=== PATIENT | male | born 1950 | race Caucasian/White ===

== ENCOUNTER 2017-06-04 09:15 | Inpatient (IN) | payer MEDICARE ==
[2017-06-04 12:49] VITALS: BMI 35.9
[2017-06-04] MEDS ORDERED: HumaLOG 300 UNITS/3 ML VIAL SC PRN (14:21)
[2017-06-04] MEDS ORDERED: Dextrose 50% Abboject 50 ML SYRINGE SLOW IVP PRN (14:21)
[2017-06-04] MEDS ORDERED: Dextrose 5% in Water 1,000 ML IV PRN (14:21)
[2017-06-04] MEDS ORDERED: cefTRIAXone\\ROCEPHIN 1 GM in Sodium Chloride 0.9% 100 ML IVPB SCH (15:00)
[2017-06-04] MEDS: Sodium Chloride 0.9% 1,000 ML IV SCH ×2 (15:10→18:01)
[2017-06-04 15:18] LABS: Anion Gap 14 mmol/L (10-20); BUN (Urea Nitrogen) 19 mg/dL (8.4-25.7); Calc. Creatinine Clearance 146 mL/min (70-130); Calcium 8.3 mg/dL (7.8-10.44); Carbon Dioxide 23 mmol/L (23-31); Chloride 108 mmol/L (98-107); Estimated GFR-MDRD Greater than 90
[2017-06-04] MEDS ORDERED: Morphine 10 MG/ML VIAL SLOW IVP PRN (16:08)
[2017-06-04] MEDS: metroNIDAZOLE 500 MG in Premix Bag 1 BAG IVPB SCH (16:12)
[2017-06-04] MEDS ORDERED: ISOVUE-370 76%-LOCM 1 ML ONE (16:18)
[2017-06-04] MEDS: Cefepime 2 GM, Syringe 2.5 ML in Sterile Water 10 ML SLOW IVP SCH (17:34)
--- NOTE | 2017-06-04 17:54 | CT ---
CT ABDOMEN AND PELVIS WITH CONTRAST 06/04/17 HISTORY: Left lower quadrant abdominal pain and back pain. COMPARISON: None. FINDINGS: Moderate bilateral layering pleural effusions. No pericardial effusion. Small layering free fluid in the pelvis. Prostate is markedly enlarged. Moderate diverticular diseas e of the sigmoid colon without active inflammation. There is moderate stranding around the pancreatic tail. No areas of nonenhancement. No hydronephrosis. 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 No acute osseous abnormality. IMPRESSION: 1. Acute edematous pancreatitis in the pancreatic tail. No drainable fluid collection. 2. Moderate sized bilateral layering pleural effusions. 3. Small volume free fluid in the pelvis. 4. Mild diverticular disease sigmoid colon without active inflammation. POS: [facility]
[2017-06-04] MEDS ORDERED: Ondansetron HCl/PF 4 MG/2 ML Vial IVP PRN (18:52)
[2017-06-04] MEDS ORDERED: Cefepime 2 GM in Sodium Chloride 0.9% 100 ML IVPB SCH (21:00)
--- NOTE | 2017-06-04 22:40 | ULT ---
RIGHT UPPER QUADRANT ULTRASOUND 06/04/17 INDICATION: Generalized abdominal pain with history of pancreatitis. FINDINGS: The left hepatic lobe is obscured by overlying bowel gas. The visualized aspect of the liver is othe rwise unremarkable appearing. No gallstones are present. No sonographic Cohen's sign is reported. The common bile duct measures 3 .9 mm. The pancreas is obscured by overlying bowel gas. Right kidney measures 11.9 cm. No hydronephrosis is evident. Incidental note is made of right sided pleural effusion. IMPRESSION: 1. No cholelithiasis. 2. Right sided pleural effusion. POS: [facility]
--- NOTE | 2017-06-04 23:13 | HP-2 ---
CODE STATUS: FULL. ATTENDING: Italo Dietz MD RESIDENT: Victoria Gutierrez MD HISTORIAN: Self. CHIEF COMPLAINT: Pancreatitis, transferred from outside hospital. HISTORY OF PRESENT ILLNESS: This is a 67-year-old male with past medical history of hypertension, p rediabetes and hyperlipidemia who presents as a transfer from [facility] for acute pancreati tis. He was admitted there on 06/02/2017 after 2 days of abdominal pain, nausea, fevers. He also h as not had a bowel movement since Thursday. His pain has improved since hospitalization, but his le ukocytosis has continued to worsen. His nausea has improved with NG tube, but his abdominal pain is still really bad in the left lower quadrant. PAST MEDICAL HISTORY: 1. Hypertension. 2. Prediabetes. 3. Benign bladder tumor. 4. Hyperlipidemia. Used to be on lovastatin, but stopped due to leg cramps. PAST SURGICAL HISTORY: Tonsillectomy. ALLERGIES: No known drug allergies. MEDICATIONS: 1. Metformin 500 mg at bedtime. 2. Lisinopril/hydrochlorothiazide 20 mg/12.5 mg. FAMILY HISTORY: Dad had a CVA at 56 years old. Two sisters had breast cancer. SOCIAL HISTORY: Denies tobacco or drug use. Drinks alcohol occasionally. REVIEW OF SYSTEMS: Twelve point review of systems was conducted was negative, unless otherwise ment ioned in the HPI. PHYSICAL EXAMINATION: VITAL SIGNS: Blood pressure 153/86, pulse 103, respiratory rate 16, temperature 98.2, pulse ox 95% on room air. Current weight 110 kilograms. GENERAL: Alert, oriented x3, no acute distress, obese, appropriately interactive. EYES: Pupils equal, round, reactive to light. Extraocular muscles intact. Conjunctivae within nor mal limits. ENT: Nasal mucosa and oropharynx within normal limits. NECK: Supple, no lymphadenopathy. CARDIOVASCULAR: Regular rate and rhythm. No murmurs, gallops, 2+ radial and pedal pulses. RESPIRATORY: Normal effort, no retractions, clear to auscultation bilaterally. SKIN: Warm, dry. No cyanosis or lesions. ABDOMEN: Soft, mildly tender to palpation, worse on the left lower quadrant. No bowel sounds heard , some mild distention. EXTREMITIES: Trace pitting edema, no cyanosis. MUSCULOSKELETAL: Structure and tone within normal limits, 5/5 muscle strength. Full range of motio n. NEUROLOGIC: No focal deficits. Sensation within normal limits. PSYCHIATRIC: Appropriate. LABORATORY DATA: WBC 35, hemoglobin 13, hematocrit 39.8, platelets 222. Sodium 140, potassium 3.6, chloride 106, CO2 of 24, BUN 16, creatinine 0.8, glucose 153, calcium 8.5, total protein 6, albumin 3, T-bilirubin 0.7, AST 13, ALT 12, alkaline phosphatase 68. Amylase was 277 on admission and is n ow 38. Lipase was 430 on admission and is now 28. IMAGING: CT abdomen on 06/02/2017 showed mild peripancreatic inflammatory change compatible with pa ncreatitis. ASSESSMENT AND PLAN: A 67-year-old male presents with: 1. Acute pancreatitis. Lipase and amylase have improved. There is a concern for complication with increased white blood cell counts. We will get a CT abdomen and pelvis with and without contrast. We will continue IV fluids at 150 mL per hour. We will treat with Flagyl and cefepime. We will pu t the NG tube to suction and keep the patient n.p.o. We will recheck in a.m. CBC and will give morph ine p.r.n. for pain. We will consider surgery consult if needed. 2. Ileus. Concern for bowel ischemia. The patient has not had a bowel movement since Thursday. W e will get a CT scan and an NG tube to suction and n.p.o., normal saline at 150 mL per hour. 3. Leukocytosis with trending white blood cell count. We will treat with cefepime and Flagyl, NS a t [address] abdomen. 4. Hypertension. We will hold home meds. We will give hydralazine p.r.n. for systolic blood pressu re greater than 180. 5. Hyperlipidemia, not on any medication. We will check a fasting lipid panel for potential causes of pancreatitis. 6. Prediabetes. We will give mild sliding scale insulin. Accu-Cheks q.6 hours. 7. Venous thromboembolism prophylaxis. Lovenox. DISPOSITION: Admit to medical. Symptomatic medication will be provided. History and physical exam as well as management discussed with Dr. Dietz.
[2017-06-05] MEDS: metroNIDAZOLE 500 MG in Premix Bag 1 BAG IVPB SCH ×2 (00:13→09:18)
[2017-06-05] MEDS: Sodium Chloride 0.9% 1,000 ML IV SCH (00:19)
--- NOTE | 2017-06-05 01:54 | CON ---
DATE OF SERVICE: 06/04/2017 HISTORY OF PRESENT ILLNESS: Willis Aguirre is a 67-year-old male transferred from [place]. The pat ient has been having abdominal pain, left mid upper abdomen, nausea and vomiting since Thursday. He was hospitalized in [place] noted to have a minimal elevation of his lipase. CAT scan of abdomen and pelvis on 06/02/2017, revealed pancreatitis changes to the tail of the pancreas. The patient re mained tender. His white count continued to elevate to 35,000. He was transferred to our emergency room and admitted to [facility] for abdominal pain. I have been asked to see him regarding skinner rgical input. The patient has never had a colonoscopy. 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 He reports drinking an occasional beer but did not have alcohol within 48-72 hours at the onset of his pain. He has not had a bowel movement for several days. He report s an NG tube placed in [place] filled 4-5 canisters. He had a CAT scan in [place] on 06/02/2017 as described above and repeat CAT scan today at this facility revealed changes consistent with infl ammatory changes at the tail of the pancreas, otherwise no other findings. He does have a mildly di stended gallbladder. There is significant stool in his right colon, but he does not appear to be co nstipated. The patient reports pain in his left mid abdomen to lower abdomen radiating to his back. CAT scan did demonstrate diverticulosis but no changes of diverticulitis. In this facility, tempe rature is 98.2 degrees, heart rate 103, respiratory rate 15, 153/86. Sodium 141, potassium 3.6, chl oride 108, creatinine 0.78. Lactic acid is 1.8. He reports passing some flatus today but has not h ad a bowel movement since Thursday. He had normal bowel function prior without a prior history of b iliary colic or abdominal pain. ALLERGIES: None. TOBACCO: None. ALCOHOL: Infrequently, none recently. MEDICATIONS: Metformin 500 p.m., lisinopril/hydrochlorothiazide 20/12.5 daily. PAST MEDICAL HISTORY: Hypertension. He reports that he is not diabetic, but he takes metformin, so he will not be diabetic. REVIEW OF SYSTEMS: Noncontributory. 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 He has amarisanam r had a colonoscopy. PHYSICAL EXAMINATION: VITAL SIGNS: Five foot 9 inches, 243 pounds, 36 BMI. 98.2 degrees, 103, 15 respiratory rate, 153/8 6. LUNGS: Clear to auscultation. CARDIAC: Regular rate and rhythm without murmur or gallop. ABDOMEN: Soft, protuberant, tenderness in right upper quadrant with guarding, tenderness in his lef t knt-pu-fjcre abdomen with mild guarding, no peritoneal signs. Bowel sounds absent. EXTREMITIES: Unremarkable. ASSESSMENT AND PLAN: 1. Abdominal pain of uncertain etiology. His lipase and amylase were not significantly elevated, a [facility] CAT scan revealed changes of distal pancreatitis tail. This was done on 06/02/2017 in [facility] and repeat CAT scan today revealed the same. There are no obvious other changes to account for his leukocytosis and continued pain. I would recommend an ultrasound of his gallbladder to escape etiology of his pancreatitis. I would ask Gastroenterology to see him for their input. He may need a colonoscopy to evaluate things. The patient will repeat his abdominal x-rays in the morning and make further recommendations based on a review of his CAT scan with the radiologist, review of his u ltrasound, abdominal films, and await Gastroenterology input. Continue cefepime. Check laboratorie s tomorrow. 2. Diabetes mellitus. 3. Hypertension. 4. Obesity, morbid. 5. Metabolic syndrome.
[2017-06-05 04:54] LABS: Anion Gap 16 mmol/L (10-20); BUN (Urea Nitrogen) 20 mg/dL (8.4-25.7); Calc. Creatinine Clearance 146 mL/min (70-130); Calcium 8.3 mg/dL (7.8-10.44); Carbon Dioxide 22 mmol/L (23-31); Chloride 108 mmol/L (98-107); Cholesterol 122 mg/dl (< 200 Desired); Estimated GFR-MDRD Greater than 90; LDL Cholesterol, Calculated 82 mg/dL
[2017-06-05 05:13] LABS: Band 7 % (5-11); Hematocrit 37.5 % (42.0-52.0); Mean Platelet Volume 8.2 fL (7.4-10.4); Neutrophil 78 % (42-75); Red Blood Cell (RBC) Count 4.27 mill/uL (4.70-6.10); White Blood Cell (WBC) Count 26.4 thou/uL (4.8-10.8)
[2017-06-05] MEDS: Cefepime 2 GM, Syringe 2.5 ML in Sterile Water 10 ML SLOW IVP SCH (05:17)
[2017-06-05] MEDS ORDERED: Potassium Chloride 40 MEQ in Sodium Chloride 0.9% 500 ML IVPB SCH (06:30)
--- NOTE | 2017-06-05 08:59 | PDOC.FM ---
- Subjective Subjective: Patient reports some chills overnight and around 6am he started having bright red blood out of his NG tube. He denies any dizziness, lightheadedness. He also reports that last night he started having some SOB. He denies any chest pain. He is passing gas since last night, but is still not having any bowel movements. He is still having abdominal pain that is worse in the left lower quadrant. - Objective MAR Reviewed: Yes Vital Signs & Weight: Vital Signs (12 hours) Temp Pulse Resp BP Pulse Ox 06/05/17 08:18 97.5 F L 97 20 163/88 H 96 06/05/17 04:00 98.7 F 91 16 150/86 H 94 L 06/05/17 00:00 97.9 F 99 16 143/90 H 92 L Weight Weight 110.54 kg I&O: 06/04/17 06/05/17 06/06/17 06:59 06:59 06:59 Intake Total 1000 1800 Output Total 300 1000 Balance 700 800 Result Diagrams: 06/05/17 03:14 06/05/17 03:14 Phys Exam - Physical Examination Constitutional: NAD HEENT: moist MMs Respiratory: no wheezing, no rales, no rhonchi, clear to auscultation bilateral Cardiovascular: no significant murmur, no rub tachycardic Gastrointestinal: soft, positive bowel sounds mildly distended, tender to palpation in left lower quadrant and SUSAN Musculoskeletal: edema present (trace edema in ankles) Neurological: non-focal, moves all 4 limbs Psychiatric: normal affect, A&O x 3 Dx/Plan (1) Acute pancreatitis Code(s): K85.90 - ACUTE PANCREATITIS WITHOUT NECROSIS OR INFECTION, UNSP Status: Acute Qualifiers: Pancreatitis type: unspecified pancreatitis type Acute pancreatitis complication: no infection or necrosis Qualified Code(s): K85.90 - Acute pancreatitis without necrosis or infection, unspecified Plan: Acute pancreatitis admitted at [facility] on 06/02, transferred here for concern for complication with persistently increasing white count. CT scan showed inflammation in tail of pancreas, but no abscess or necrosis. -NG tube to suction -NPO -NS @ 150 -Cefepime day 2 (s/p 2 days of rocephin), Flagyl day 4 -General Surgery consulted, appreciate recs -GI consulted, appreciate recs -Acute abdomen series (2) Upper GI bleed Code(s): K92.2 - GASTROINTESTINAL HEMORRHAGE, UNSPECIFIED Status: Acute Plan: Patient put out about 100mL of bright red blood from the NG tube since 6am. No increase in abdominal pain, no change in vital signs. Patient is stable. AM Hb was 12.4 -GI has been consulted, appreciate recs -Acute abdomen series (3) Leukocytosis Code(s): D72.829 - ELEVATED WHITE BLOOD CELL COUNT, UNSPECIFIED Status: Acute Qualifiers: Leukocytosis type: unspecified Qualified Code(s): D72.829 - Elevated white blood cell count, unspecified Plan: Elevated WBC count, now downtrending since transfer here -Continue NS @ 150 -Continue Cefepime and Flagyl -Trend CBC (4) Hypokalemia Code(s): E87.6 - HYPOKALEMIA Status: Acute Plan: K 3.2 -Will replete (5) Ileus Code(s): K56.7 - ILEUS, UNSPECIFIED Status: Acute Plan: Pt had an ileus, but is now passing gas and has bowel sounds Has not had a BM since Thursday -Will continue to monitor (6) Prediabetes Code(s): R73.03 - PREDIABETES Status: Acute Plan: -Accuchecks q6h -Mild SSI (7) Hypertension Code(s): I10 - ESSENTIAL (PRIMARY) HYPERTENSION Status: Acute Qualifiers: Hypertension type: essential hypertension Qualified Code(s): I10 - Essential (primary) hypertension Plan: Hold home medicine while pt is NPO Hydralazine prn
[2017-06-05] MEDS: Enoxaparin Sodium 40 MG/0.4 ML SYRINGE SC SCH (09:21)
[2017-06-05] MEDS ORDERED: hydrALAZINE 20 MG/ML VIAL SLOW IVP PRN (09:32)
[2017-06-05] MEDS: Potassium Chloride 20 MEQ in Lactated Ringer's 1,000 ML IV SCH ×3 (10:27→18:01)
--- NOTE | 2017-06-05 10:38 | RAD ---
ABDOMEN TWO VIEWS: CHEST ONE VIEW: HISTORY: A 67-year-old male with abdominal pain. COMPARISON: Abdomen and pelvis CT scan from 06/04/2017. FINDINGS: Small bilateral pleural effusions, larger on the left side, with some associated left lower lobe pul monary parenchymal change, evidence for some subsegmental atelectasis, probably stable from 06/04/20 17. NG tube is in place, with the tip in the stomach. There is gas and fecal material in the colon . No evidence of large or small bowel obstruction or free air or overt calculus. IMPRESSION: 1. Nasogastric tube in place. 2. Left pleural effusion and pulmonary parenchymal changes, stable from prior CT. 3. No overt calculus or bowel obstruction or free air. POS: [facility]
[2017-06-05] MEDS ORDERED: Pantoprazole 40 MG VIAL IVP SCH (11:00)
--- NOTE | 2017-06-05 11:35 | CON ---
DATE OF CONSULTATION: 06/05/2017 GI INPATIENT CONSULTATION NOTE REASON FOR CONSULTATION: Hematemesis. HISTORY OF PRESENT ILLNESS: Willis Aguirre is a 67-year-old man with a history of hypertension who wa s transferred here from [place] yesterday with worsening leukocytosis in the context of what appea rs to be distal pancreatitis. The patient reports no prior history of any pancreatic or liver disea se or illness or any gastrointestinal illness. He has never undergone EGD or colonoscopy. He will have occasional alcohol, but none recently. Essentially several days ago, he had fairly acute onset of abdominal pain on the left side. This is in the left upper quadrant radiating down to the left lower quadrant and also to the low back. It is associated with nausea and several episodes of dry h eaves. He was hospitalized in [place] with a minimal elevation of his lipase and a CT scan there on 06/02/2017 showing pancreatitis changes to the tail of the pancreas. He had a worsening leukocyt osis to 35,000 and that prompted his transfer here yesterday. Repeat CT yesterday again demonstrate d changes consistent with inflammation in the tail of the pancreas, but otherwise no acute findings. He had a nasogastric tube in place which initially put out over 4 mL of clear fluid. The nasogast jannette tube remained in place, then this morning acutely the patient had bright red blood coming out of the nasogastric tube. Nursing reports he had 300-400 mL of bright red blood and now this has turne d into coffeeground type material. The patient did not have any particular worsening of his abdomin al pain, no fever spike. He has remained hemodynamically stable. Labs this morning prior to the bl ood from the nasogastric tube showed normal hemoglobin of 12.6. I am starting him on IV PPI at this time. The patient does relate that he takes several Advil most days including some 800 mg Advil recently f or his aches and pains and then worsening abdominal pain. He does not take any acid suppression. REVIEW OF SYSTEMS: Full review of systems including constitutional, head, eyes, ears, nose, throat, GI, , cardiovascular, respiratory, musculoskeletal, and neurologic systems is negative except as noted in the HPI. PAST MEDICAL HISTORY: 1. Hypertension. 2. Borderline hyperglycemia. 3. Obesity. OUTPATIENT MEDICATIONS: Metformin 500 mg q.p.m., lisinopril/hydrochlorothiazide 20/12.5 mg daily. INPATIENT MEDICATIONS: Cefepime 2 g IV q.12 hours, Lovenox, metronidazole 500 mg q.8 hours IV, morp maritza p.r.n., Zosyn IV, Protonix 40 mg IV q.12 hours started this morning. SOCIAL HISTORY: No tobacco abuse, alcohol use is infrequent, none recently. FAMILY HISTORY: Negative for GI malignancy. PHYSICAL EXAMINATION: VITAL SIGNS: Temperature 97.5, pulse 97, blood pressure 163/88, and 96% oxygen saturation on room a ir. GENERAL: A 67-year-old man lying in bed comfortably in no acute distress. SKIN: No jaundice, no rashes were palpable. EYES: No scleral icterus. Extraocular movements intact. ENT: Mucous membranes moist. He has a nasogastric tube in place and this is suctioning out some co ffee grounds emesis material. LYMPH: No submandibular or supraclavicular lymphadenopathy. THYROID: Nontender to palpation. HEART: Regular rate and rhythm. LUNGS: Clear to auscultation bilaterally. ABDOMEN: Bowel sounds present, but hypoactive. The abdomen is soft and tender to palpation only on the left side of the abdomen. No guarding or rebound tenderness. EXTREMITIES: No peripheral edema. VESSELS: Radial pulses 2+ bilaterally. NEUROLOGICAL: Cranial nerves II-XII intact bilaterally. No focal deficits. LABORATORY STUDIES: WBC 26.4, hemoglobin 12.4, and platelets 244. Sodium 143, potassium 3.2, BUN 2 0, creatinine 0.78, and lactic acid 1.8. Labs from [place] prior to transfer here showed normal L FTs with total bilirubin 0.7, alkaline phosphatase 68, AST 13, ALT 12, amylase was 277 on admission and had declined to 38, lipase is 430 on admission, but had declined to 28. IMAGING STUDIES: CT of the abdomen and pelvis performed yesterday demonstrated acute edematous panc reatitis in the pancreatic tail with no drainable fluid collection. There is moderate bilateral ple ural effusion, mild diverticular disease in the sigmoid colon, but without any evidence of active di verticulitis. Abdominal ultrasound performed last night showed no evidence of cholelithiasis, malik l common bile duct measuring 3.9 mm. ASSESSMENT AND PLAN: 1. Acute hematemesis. I have started the patient on Protonix 40 mg IV twice daily. We will plan f or diagnostic esophagogastroduodenoscopy later today. Note, the patient is hemodynamically stable a nd this is all acute this morning. It is possible this is related to his presenting pain, need to r ule out peptic ulcer disease, etc. Further recommendations following endoscopy in this regard. Ple ase recheck hemoglobin and hematocrit later today. 2. Pancreatitis, involving the pancreatic tail. I see pancreatic enzymes declined while he was at [place], but CT findings of pancreatic tail inflammation persists. Etiology of this is unclear. Note the normal LFTs, as well as essentially normal appearing gallbladder on ultrasound. Consider p ossibility that he might be reacting to his thiazide diuretic. Would recommend thiazide be disconti nued. Continue supportive care, n.p.o., IV fluids and pain control. 3. Left-sided abdominal pain, unclear whether related to upper gastrointestinal mucosal pathology o r his pancreatitis. Thank you for the consultation. Please call back with questions or concerns.
[2017-06-05] MEDS ORDERED: Succinylcholine Chloride 20 MG/ML 10 ml SYRINGE FS ONE (13:05)
[2017-06-05] MEDS ORDERED: Lidocaine 1% PF 5 ML VIAL ONE (13:05)
[2017-06-05] MEDS ORDERED: Propofol 200 MG/20 ML VIAL ONE (13:05)
[2017-06-05] MEDS ORDERED: Promethazine HCl 25 MG/ML VIAL IM PRN (13:33)
[2017-06-05] MEDS ORDERED: Ondansetron HCl/PF 4 MG/2 ML Vial IVP PRN (13:33)
[2017-06-05] MEDS ORDERED: Promethazine HCl 25 MG/ML VIAL SLOW IVP PRN (13:33)
--- NOTE | 2017-06-05 14:38 | HP ---
CHIEF COMPLAINT: Pancreatitis, transfer from outside hospital. I have also reviewed the history an d physical of Dr. Victoria Gutierrez and agree with her assessment and plan. HISTORY OF PRESENT ILLNESS: Mr. Aguirre is a pleasant 67-year-old white male patient who was transferr ed from [facility]. He had been admitted there on 06/02 with acute pancreatitis. Clinicall y, he had been improving, but his white count devon from 31,000 to 35,000 in [place], we will ask f or transfer here for higher level of care. I admitted him after the transfer and he is being worked up. PHYSICAL EXAMINATION: GENERAL: Mr. Aguirre is quite pleasant. He is awake and alert. He is in no distress. He states real ly he feels better than from his admission 3 days ago and had this pain is substantially diminished. VITAL SIGNS: Stable with a blood pressure 150/80, his pulse rate is 100, respiratory rate is 16, an d he is afebrile and his room air pulse oximetry is 95%. HEENT: Dry mucous membranes, otherwise unremarkable. There is an NG tube in place. NECK: Supple. CARDIAC: PMI is in the fifth intercostal space. No gallop or murmur noted. LUNGS: Slightly diminished, but clear. No rales, rhonchi or wheezes. ABDOMEN: Slightly distended. He is mostly tender in the left lower quadrant. He only has minimal tenderness in the epigastric area and none in the right upper quadrant. EXTREMITIES: No edema. NEUROLOGIC: No focal deficits. LABORATORY DATA: His CBC is now 26,000, hemoglobin 12.4, hematocrit 37.5. Chemistries: Sodium 141 , potassium 3.6, chloride 108, bicarbonate 23, BUN 19, creatinine 0.78. Lactic acid is 1.8. ASSESSMENT: Acute pancreatitis and persistent elevation of white count and abdominal pain. PLAN: We will admit Mr. Aguirre. We will repeat his abdominal CT. We will go ahead and consult Gener al Surgery, although there is likely no indication for surgery at this time. We may later consult [facility] depending on results of surgical consult. I would now like to proceed with the daily Timothy and please add this as an addendum to the note of Dr Kwaku Gutierrez. Mr. Aguirre continues to feel well this morning. His vital signs remained stable and he is a febrile. Surgery did not find any surgical indications, but did recommend GI consult. Dr. Gomez has in fact seen the patient and is to perform EGD later today. Earlier this morning, Mr. Aguirre had an episode of upper GI bleeding of about 300-400 mL of bright red blood and coffee-ground looking mater ial. Although, this could be from NG irritation. He will be taken for EGD. Further recommendation s will be per GI.
--- NOTE | 2017-06-05 14:44 | OP ---
DATE OF PROCEDURE: 06/05/2017 SURGEON: Ray Gomez M.D. ASSOCIATE [employer]ET[employer] PROFESSOR SURGEON: None. PROCEDURE PERFORMED: Esophagogastroduodenoscopy, diagnostic. INDICATION: Acute hematemesis in a patient hospitalized for pancreatitis, with continued left-sided abdominal pain, in the context of chronic NSAID use. MEDICATIONS: See anesthesia record. FINDINGS: After discussion of the risks, benefits and alternatives of the procedure, informed conse nt was obtained and witnessed. Pre-endoscopic cardiopulmonary examination was satisfactory. DESCRIPTION OF PROCEDURE: Timeout was performed before sedation was achieved. Sedation was achieve d with anesthesia assistance in the endoscopy unit. A Pentax adult upper endoscope was placed into the oropharynx and passed through the cricopharyngeus under direct visualization. The esophageal mu cosa appeared normal throughout with a normal-appearing Z-line. The endoscope was then advanced int o the stomach. Forward and retroflexed views of the entire gastric mucosa were obtained. There is no evidence of any old blood or active bleeding in the stomach. In the gastric body, there are mult iple ulcerations, some of which are of greater than 1 cm in size. These are either clean based or c overed with black eschar. No biopsies were obtained on this examination. No endoscopic therapy sandra lied. There was no evidence of esophageal or gastric varices. The endoscope was advanced beyond th e pylorus and into the first and second portions of the duodenum, which appeared normal. The upper endoscope was then completely withdrawn and the patient allowed to recover. The patient tolerated t he procedure well. There were no immediate post-procedure complications. IMPRESSION: 1. Multiple gastric ulcerations in the gastric body, clean based or covered with black eschar. No active bleeding on this examination. No endoscopic therapy applied. 2. Normal esophagus. 3. Normal duodenum. 4. No old blood or active bleeding. RECOMMENDATIONS: 1. Continue Protonix 40 mg IV q.12 hours for now. Upon discharge, transitioned to 40 mg p.o. b.i.d . Continue this for at least 2 months, then we will plan for followup EGD at the 2 month interval t o ensure ulcer healing. 2. Remain n.p.o. for pancreatitis. 3. Continue supportive care for pancreatitis. 4. Avoid further nonsteroidal anti-inflammatory drugs. 5. We would avoid passing a nasogastric tube again if possible. 6. We will check H. pylori serology with morning labs.
[2017-06-05] MEDS: Piperacillin/Tazobactam 4.5 GM in Sodium Chloride 0.9% 100 ML IVPB SCH ×2 (15:44→20:01)
--- NOTE | 2017-06-05 16:40 | PRG ---
DATE OF SERVICE: 06/05/2017 SUBJECTIVE: Willis Aguirre is doing well today. Dr. Gomez has seen him and EGD performed at 1 o'clock . NG tube was left out after the procedure. The patient had multiple gastric ulcers in the gastric body, I recover the black eschar. No active bleeding on exam, normal esophagus and duodenum otherw ise. The patient has a history of NSAID use. Protonix IV q.12 h. converting to oral PPIs and plan for followup EGD in 2 months. He will need to assure these ulcers heal to rule out a malignancy. T he patient also will need a colonoscopy at his age of 67. He has never had one. He should refrain from NSAID use. The patient's abdominal pain is markedly improved. OBJECTIVE: LUNGS: Clear to auscultation. CARDIAC: Regular rate and rhythm without murmur or gallop. ABDOMEN: Soft and nontender. EXTREMITIES: Unremarkable. I have reviewed the patient's CAT scans with Radiology where CAT scan of both in [place] and local . He did definitely had distal pancreatitis. His ultrasound of the gallbladder is normal without stones. There is no significant alcohol use to suspect a cost of alcohol etiology. He does, howev er, taken thiazide. A thiazide diuretic should be discontinued. The patient did have significant c onstipation in the right colon, hepatic flexure area. I would recommend MiraLax daily. As far as h is leukocytosis, this is probably residual from his distal pancreatitis. I think his antibiotics co uld be discontinued. I discontinued tomorrow. We will check his CBC tomorrow. At this point, the patient does not seem to have a surgical issue. Dr. Engle is covering over the weekend. Please tova l if needed. The patient could be discharged home with Augmentin p.o. for 5 days and follow up in m y office as needed. I will see the patient as needed this hospitalization. Please call if further service as needed.
[2017-06-05] MEDS: Pantoprazole 40 MG VIAL IVP SCH (20:03)
[2017-06-05] MEDS: Citrucel 500 MG TAB PO SCH (20:03)
[2017-06-05] MEDS: Polyethylene Glycol 3350 17 GM Packet PO SCH (20:06)
[2017-06-06] MEDS: Piperacillin/Tazobactam 4.5 GM in Sodium Chloride 0.9% 100 ML IVPB SCH ×2 (03:18→12:47)
[2017-06-06 04:19] LABS: #Eosinphils 0.1 thou/uL (0.0-0.7); #Lymphocytes 2.8 thou/uL (1.20-3.40); #Monocytes 1.3 thou/uL (0.11-0.59); #Neutrophils 15.7 thou/uL (1.40-6.50); %Basophils 0.1 % (0.0-1.0); %Eosinophils 0.3 % (0.0-10.0); %Lymphocytes 13.9 % (21.0-51.0); %Monocytes 6.7 % (0.0-10.0); Hematocrit 36.4 % (42.0-52.0); Mean Platelet Volume 7.6 fL (7.4-10.4); Red Blood Cell (RBC) Count 4.17 mill/uL (4.70-6.10); White Blood Cell (WBC) Count 19.9 thou/uL (4.8-10.8)
[2017-06-06 04:31] LABS: Anion Gap 10 mmol/L (10-20); BUN (Urea Nitrogen) 21 mg/dL (8.4-25.7); Calc. Creatinine Clearance 146 mL/min (70-130); Calcium 8.2 mg/dL (7.8-10.44); Carbon Dioxide 26 mmol/L (23-31); Chloride 111 mmol/L (98-107); Estimated GFR-MDRD Greater than 90
[2017-06-06] MEDS ORDERED: Potassium Chloride 40 MEQ in Sodium Chloride 0.9% 500 ML IVPB SCH (06:00)
[2017-06-06] MEDS: Potassium Chloride 20 MEQ in Lactated Ringer's 1,000 ML IV SCH (06:22)
--- NOTE | 2017-06-06 07:30 | PDOC.FM ---
- Subjective Subjective: Pt states that he feels much better today and is wanting to eat. He states that he is in almost no pain and his nausea has stopped. There were no acute events over night. NG has been dc'd. Pt is s/p EGD yesterday - Objective Vital Signs & Weight: Vital Signs (12 hours) Temp Pulse Resp BP Pulse Ox 06/06/17 05:39 98.8 F 76 18 158/93 H 95 06/05/17 20:00 98.2 F 75 20 145/83 H 95 Weight Admit Weight 110.54 kg Weight 110.54 kg I&O: 06/05/17 06/06/17 06/07/17 06:59 06:59 05:59 Intake Total 1000 2990 Output Total 300 1600 Balance 700 1390 Result Diagrams: 06/06/17 03:47 06/06/17 03:47 <Michael Gibbs - Last Filed: 06/06/17 07:28> - Objective Vital Signs & Weight: Vital Signs (12 hours) Temp Pulse Resp BP Pulse Ox 06/06/17 08:00 97.6 F 87 16 95 06/06/17 07:00 97.6 F 87 16 150/87 H 95 06/06/17 05:39 98.8 F 76 18 158/93 H 95 Weight Admit Weight 243 lb 11.2 oz Weight 243 lb 11.2 oz I&O: 06/05/17 06/06/17 06/07/17 06:59 06:59 05:59 Intake Total 1000 2990 Output Total 300 1600 Balance 700 1390 Result Diagrams: 06/06/17 03:47 06/06/17 03:47 <Anthony Da Silva - Last Filed: 06/06/17 10:37> Phys Exam - Physical Examination Constitutional: NAD HEENT: moist MMs Neck: no JVD, full ROM Respiratory: no wheezing, no rales, no rhonchi, clear to auscultation bilateral Cardiovascular: RRR, no significant murmur Gastrointestinal: soft, non-tender, no distention, positive bowel sounds Musculoskeletal: no edema Neurological: non-focal, normal sensation, moves all 4 limbs Psychiatric: normal affect, A&O x 3 Skin: no rash, normal turgor <Michael Gibbs - Last Filed: 06/06/17 07:28> Dx/Plan (1) Acute pancreatitis Code(s): K85.90 - ACUTE PANCREATITIS WITHOUT NECROSIS OR INFECTION, UNSP Status: Acute Qualifiers: Pancreatitis type: unspecified pancreatitis type Acute pancreatitis complication: no infection or necrosis Qualified Code(s): K85.90 - Acute pancreatitis without necrosis or infection, unspecified Plan: Acute pancreatitis admitted at OSH on 06/02, transferred here for concern for complication with persistently increasing white count. CT scan showed inflammation in tail of pancreas, but no abscess or necrosis. -NG tube has beed dc'd -Liquid diet -NS @ 150 -On zosyn, other abx held. Consider stopping all today -General Surgery consulted, will not operate -GI consulted, EGD performed that shows multiple ulcers w/eschars. H pylori test pending (2) Hypokalemia Code(s): E87.6 - HYPOKALEMIA Status: Acute Plan: Replaced yesterday IV Will replace again today. Check Mg (3) Ileus Code(s): K56.7 - ILEUS, UNSPECIFIED Status: Resolved Plan: Good bowel sounds Pt had BM yesterday (4) Leukocytosis Code(s): D72.829 - ELEVATED WHITE BLOOD CELL COUNT, UNSPECIFIED Status: Acute Qualifiers: Leukocytosis type: unspecified Qualified Code(s): D72.829 - Elevated white blood cell count, unspecified Plan: Down trending Continue abx Possibly dt pancreatitis trend CBC (5) Prediabetes Code(s): R73.03 - PREDIABETES Status: Chronic Plan: -accucheck q6 -Mild SSI (6) Upper GI bleed Code(s): K92.2 - GASTROINTESTINAL HEMORRHAGE, UNSPECIFIED Status: Acute Plan: -Bleed has stopped, no acute bleed ID'd during EGD yesterday. Appears that this was dt a bleeding ulcer. -GI recs pending H Pylori testing results <Michael Gibbs - Last Filed: 06/06/17 07:28> Attending Addendum - Attending Addendum I personally evaluated the patient and discussed the management with [ Sai] I agree with the History, Examination, Assessment and Plan documented above with any addition or exceptions noted below. Plans for discharge today pending H. pylori results and if tolerating PO. Had BM yesterday. Transition to oral antibiotics. <Anthony Da Silva - Last Filed: 06/06/17 10:37>
[2017-06-06] MEDS: Citrucel 500 MG TAB PO SCH (08:37)
[2017-06-06] MEDS: Pantoprazole 40 MG VIAL IVP SCH (08:38)
[2017-06-06] MEDS: Enoxaparin Sodium 40 MG/0.4 ML SYRINGE SC SCH (08:38)
[2017-06-06] MEDS: Polyethylene Glycol 3350 17 GM Packet PO SCH ×2 (08:45→12:43)
[2017-06-06 11:44] VITALS: BP 144/83; TEMP 98.1
[2017-06-06] MEDS ORDERED: Amoxicillin/Potassium Clav 500 MG TAB PO SCH ×2 (11:45→21:00)
--- NOTE | 2017-06-06 12:21 | PRG ---
DATE OF SERVICE: 06/06/2017 GI INPATIENT DAILY PROGRESS NOTE SUBJECTIVE: Mr. Aguirre is feeling a lot better. He has been tolerating a liquid diet. He denies any abdominal pain or nausea at this time. OBJECTIVE: VITAL SIGNS: Temperature 97.6, pulse 87, blood pressure 150/87, 95% oxygen saturation on room air. GENERAL: No acute distress. HEART: Regular rate and rhythm. LUNGS: Clear to auscultation bilaterally. ABDOMEN: Soft, nontender to palpation. EXTREMITIES: No peripheral edema. LABORATORY STUDIES: WBC 19.9, hemoglobin 11.9, platelets 260. Sodium 144, potassium 3.3, BUN 21, c reatinine 0.78, glucose 111, magnesium 1.9. ASSESSMENT AND PLAN: 1. Pancreatitis, clinically resolving. 2. Multiple gastric ulcers. The patient seems to be doing very well with clinical resolution of hi s pancreatitis. His diet can continue to be advanced as tolerated. If he is doing well this aftern oon, I see no reason why he could not be discharged home from a GI perspective. Regarding the ulcers, he needs to continue on Protonix 40 mg p.o. b.i.d. upon discharge. We will pl an to see him back for repeat EGD at a 2-month interval to ensure ulcer healing. In the meantime, elo mendieta will follow up results of the gastric biopsies and treat for H. pylori if this is present. I have encouraged him to avoid all nonsteroidal anti-inflammatory drugs. We will also arrange to perform his first screening colonoscopy in 2 months at the same time as the EGD. GI will sign off at this time, but please call back with questions or concerns.
[2017-06-06] MEDS ORDERED: Potassium Chloride 20 MEQ TAB PO SCH (15:30)
--- NOTE | 2017-06-08 11:22 | DIS-2 ---
DATE OF ADMISSION: 06/04/2017 DATE OF DISCHARGE: 06/06/2017 ADMISSION ATTENDING: Italo Dietz M.D. DISCHARGE ATTENDING: Anthony Da Silva M.D. RESIDENT: Michael Gibbs D.O. CONSULTATIONS: Dr. Granda, Surgery; Dr. Ray Gomez, GI. PROCEDURES: EGD. DISCONTINUED MEDICATIONS: None. DISCHARGE MEDICATIONS: 1. Metformin 500 mg p.o. daily. 2. Lisinopril/hydrochlorothiazide 20/12.5 one tab daily. 3. Augmentin 500 mg p.o. q.12h. for 5 days. 4. Protonix 40 mg p.o. b.i.d. HOSPITAL COURSE: The patient was admitted from an outside facility with concern of pancreatitis or necrotizing pancreatitis and was transferred in from [place]. While admitted there was concern fo r an acute GI bleed due to the anemia. An EGD was performed which showed evidence of multiple previ ous bleeding ulcers with eschar; however, no acute bleed. It was recommended due to the elevated wh ite count that the patient will be continued on p.o. antibiotics for a week. The patient was slowly started on a diet which was advanced as tolerated. The patient did well the next day or two after the EGD and was ready for discharge with a follow up outpatient. On the day of discharge, the patie nt was no longer nauseous, no longer in pain, able to tolerate p.o. fluids and food and was sent zion e on p.o. antibiotics per recommendations. DISPOSITION: Stable. DISCHARGE INSTRUCTIONS: 1. Location: Home. 2. Diet: Consistent carb low caloric diet. 3. Activity: Ad everett. 4. Followup: Follow up with PCP in 1 week.
[2017-06-09 11:22] LABS: H. pylori IgA ABS Less than 9.0 units (0.0-8.9); H. pylori IgG ABS Less than 0.9 U/mL (0.0-0.8); H. pylori IgM ABS Less than 9.0 units (0.0-8.9)
== END 2017-06-06 16:58 | disposition home or self-care (01) | DRG 439 ==
LOC: T4-A 12:26
PROVIDERS: ADMIT Family Medicine; ATTEND Family Medicine
PROC: 0DJ08ZZ Inspection of Upper Intestinal Tract, Via Natural or Artificial Opening Endoscopic (ICD-10-PCS; principal; 2017-06-05)
DX: K85.90 Acute pancreatitis without necrosis or infection, unspecified (principal); K56.7 Ileus, unspecified; E88.81 Metabolic syndrome and other insulin resistance; E66.01 Morbid (severe) obesity due to excess calories; K92.2 Gastrointestinal hemorrhage, unspecified; K25.9 Gastric ulcer, unspecified as acute or chronic, without hemorrhage or perforation; I10 Essential (primary) hypertension; R73.03 Prediabetes; E78.5 Hyperlipidemia, unspecified; E87.6 Hypokalemia; Z68.36 Body mass index [BMI] 36.0-36.9, adult
CPT/HCPCS: 36415; 36416; 74022; 74177; 76705; 80048; 80061; 83605; 83735; 85025; 87040; 90471; 90732; A4216; C9113; G0009; J0692; J1650; J2001; J2270; J2543; J2704; J3480; J7050; J7120